=== PATIENT | male | born 1960 | race Caucasian/White ===

== ENCOUNTER → 2017-06-02 | Outpatient (CLI) | payer OTHER ==
[~2017-06-02] MED LIST: HYDROCODONE-AP1 EAC6 PO; PEPCID20 MG PO; SENOKOT-S1 TA1 PO; ZYRTEC10 MG PO
--- NOTE | ~2017-06-02 | 2DMMODE ---
[facility] [employer] [place] [address] 2 D/M-MODE ECHOCARDIOGRAM Name: GEOVANNY DAILY Room #: REG [facility]#: [id number] Admission: 06/02/17 Attend Phys: Dagoberto Love, Discharge: Date of : 58 Date of Service: 06/03/17 1012 Report #: [id number] THIS REPORT FOR: //name// APPROVED REPORT Study performed: 06/02/2017 09:54:15 EXAM: Comprehensive 2D, Doppler, and color-flow Echocardiogram Patient Location: Out-Patient Status: routine Other Information Study Quality: Good Indications Murmur Valvular murmur, Bicuspid AO 2D Dimensions LVEF(%): 57.59 (>50%) IVSd: 12.45 (7-11mm) LVOT Diam: 21.30 (18-24mm) LVDd: 51.77 mm PWd: 11.45 (7-11mm) Ascending Ao: 37.58 (22-36mm) LVDs: 35.98 (25-40mm) Aortic Root: 33.58 mm IVC: 2.30 mm Mathis's LVEF: 57.59 % Volumes Left Atrial Volume (Systole) Single Plane 4CH: 62.65 mL Single Plane 2CH: 63.19 mL LA ESV Index: 36.00 mL/m2 Aortic Valve AoV Peak Royce.: 2.25 m/s AO Peak Gr.: 20.99 mmHg LVOT Max P.43 mmHg AO Mean Gr.: 10.08 mmHg LVOT Mean P.67 mmHg AO V2 Mean: 1.48 m/s LVOT Max V: 0.88 m/s AO V2 VTI: 52.01 cm LVOT Mean V: 0.61 m/s FRANCES (VTI): 1.42 cm2 LVOT V1 VTI: 20.76 cm FRANCES Vmax: 1.40 cm2 AI Vmax: 5.28 m/s SV (LVOT): 73.97 mL AI Lea: 2.18 m/s2 AI PHT: 702.34 ms [facility] [place] [address] 2 D/M-MODE ECHOCARDIOGRAM Name: GEOVANNY DIALY Room #: REG [facility]#: [id number] Admission: 06/02/17 Attend Phys: Dagoberto Love, Discharge: Date of : 58 Date of Service: 06/03/17 1012 Report #: [id number] Mitral Valve E/A Ratio: 1.8 MV Decel. Time: 204.17 ms MV E Max Royce.: 0.73 m/s MV A Royce.: 0.41 m/s MV PHT: 59.21 ms IVRT: 83.04 ms Pulmonary Valve PV Peak Royce.: 0.84 m/s PV Peak Gr.: 2.85 mmHg Pulmonary Vein P Vein S: 0.56 m/s P Vein A: 0.24 m/s P Vein D: 0.72 m/s P Vein A Dur.: 110.7 msec P Vein S/D Ratio: 0.78 Tricuspid Valve TR Peak Royce.: 2.55 m/s RAP Estimate: 10.00 mmHg TR Peak Gr.: 26.09 mmHg PA Pressure: 36.00 mmHg Left Ventricle The left ventricle is normal size. There is normal LV segmental wall motion. There is normal left ventricular wall thickness. The left ventricular systolic function is normal. The left ventricular ejection fraction is within the normal range. LVEF is 55-60%. The left ventricular diastolic function is normal. Right Ventricle The right ventricle is normal size. The right ventricular systolic function is normal. Atria Left atrium is at the upper limits of normal. The right atrium size is normal. Aortic Valve Aortic valve is heavily calcified and possibly bicuspid. Trace to mild aortic regurgitation. Mild to moderate aortic stenosis with an FRANCES of 1.4 and a maximum gradient of 20 mmHg and a mean gradient of 10 mmHg. Mitral Valve The mitral valve is normal in structure. Trace to mild mitral regurgitation. No evidence of mitral valve stenosis. [facility] [address] [place] [address] 2 D/M-MODE ECHOCARDIOGRAM Name: GEOVANNY DAILY Room #: REG [facility]#: [id number] Admission: 06/02/17 Attend Phys: Dagoberto Love, Discharge: Date of : 58 Date of Service: 06/03/17 1012 Report #: [id number] Tricuspid Valve The tricuspid valve is normal in structure. There is trace to mild tricuspid regurgitation. The right atrial pressure is estimated at 10 mmHg. There is mild pulmonary hypertension with an estimated PAP of 36 mmHg. Pulmonic Valve The pulmonary valve is normal in structure. Trace pulmonic regurgitation. Great Vessels The aortic root is normal in size. The ascending aorta is normal in size. IVC is dilated and collapses >50% with inspiration. Pericardium There is no pericardial effusion. <Conclusion> The left ventricular systolic function is normal. There is normal LV segmental wall motion. LVEF is 55-60%. Normal diastolic function is normal. Aortic valve is heavily calcified and possibly bicuspid. Mild to moderate aortic stenosis with an FRANCES of 1.4 and a maximum gradient of 20 mmHg and a mean gradient of 10 mmHg. Trace to mild aortic regurgitation. The mitral valve is normal in structure. Trace to mild mitral regurgitation. Pulmonary artery pressure of 30mmHg There is no pericardial effusion. <ELECTRONICALLY SIGNED> By: Dagoberto Love MD, FACC 06/03/17 1012 1012 1012 Dagoberto Love MD, FACC /INF
== END ==
LOC: CV 08:25
DX: I08.3 Combined rheumatic disorders of mitral, aortic and tricuspid valves (principal); R01.1 Cardiac murmur, unspecified